=== PATIENT | female | born 1955 | race Caucasian/White ===

== ENCOUNTER 2018-07-14 22:26 | Outpatient (REF) | payer BC, SELFPAY | END 2018-07-14 22:46 | LOC: NCHCN 22:26 | PROVIDERS: PCP Family Medicine; Visit Provider Registered Nurse | DX: R30.0 Dysuria (principal) | CPT/HCPCS: 87077; 87086; 87186 ==

== ENCOUNTER 2018-07-18 17:44 | Outpatient (REF) | payer BC, SELFPAY ==
[2018-07-18 20:52] LABS: Anion Gap 5.8 mmol/L (3-11); BUN 19 mg/dL (7-18); CO2 32.2 mmol/L (21.0-32.0); CREATININE 0.83 mg/dL (0.55-1.02); Chloride 98 mmol/L (98-107); Glucose 207 mg/dL (70-100); Potassium 3.7 mmol/L (3.5-5.1); Sodium 136 mmol/L (136-145)
[2018-07-18 20:54] LABS: Abs Immature Grans 0.03 k/cumm (0.0-0.09); Absolute Basophil Count 0.03 k/cumm (0.0-0.2); Absolute Eosinophil Count 0.32 k/cumm (0.0-0.7); Absolute Lymphocyte Count 3.42 k/cumm (1.2-3.4); Absolute Monocyte Count 0.57 k/cumm (0.11-0.7); Absolute Neutrophil Count 5.88 k/cumm (1.2-6.7); Basophils % 0.3; Eosinophils % 3.1; HCT 42.6 % (36.0-46.0); HGB 13.6 g/dL (12.0-15.5); Immature Grans % 0.3; Lymphocytes % 33.4; Mean Corp. HGB Concentration 31.9 g/dL (32.0-36.0); Mean Corpuscular Hemoglobin 28.1 pg (27.0-33.0); Mean Platelet Volume 11.8 fL (8.0-11.0); Monocytes % 5.6; Neutrophils % 57.3; Platelet Count 314 x1000/uL (130-400); RBC 4.84 m/cumm (4.00-5.20); RBC Distribution Width 13.5 % (11.7-14.6); White Blood Cell Count 10.25 k/cumm (4.4-10.8)
[2018-07-18 21:10] LABS: C & S Indicated? C&S Done As Ordered
[2018-07-18 21:16] LABS: Bacteria Negative HPF (Negative); Casts Negative LPF (Negative); Crystals Negative HPF (Negative); Epithelial Cells Few HPF (Negative); Mucus Negative (Negative); Other Cells Negative (Negative); RBC Negative (0-2); WBC 0-2 HPF (0-5)
== END 2018-07-18 18:04 ==
LOC: NCHCN 17:44
PROVIDERS: PCP Family Medicine; Visit Provider Registered Nurse
DX: R10.9 Unspecified abdominal pain (principal); R82.90 Unspecified abnormal findings in urine
CPT/HCPCS: 80048; 81015; 85025; 87086

== ENCOUNTER 2018-09-28 21:31 | Outpatient (REF) | payer BC, SELFPAY ==
[2018-09-28 22:38] LABS: COMMENT (LAB VIEW ONLY) 110.83 mg/dL
== END 2018-09-28 21:51 ==
LOC: NCHCN 21:31
PROVIDERS: PCP Family Medicine; Visit Provider Family Medicine
DX: E11.9 Type 2 diabetes mellitus without complications (principal)
CPT/HCPCS: 82043; 82570

== ENCOUNTER 2019-08-02 14:59 | Outpatient (REF) | payer BC, SELFPAY ==
[2019-08-02 22:53] LABS: Anion Gap 6.9 mmol/L (3-11); BUN 17 mg/dL (7-18); CO2 31.1 mmol/L (21.0-32.0); CREATININE 0.73 mg/dL (0.55-1.02); Calcium 9.6 mg/dL (8.5-10.1); Chloride 102 mmol/L (98-107); Glucose 122 mg/dL (70-100); Potassium 3.9 mmol/L (3.5-5.1); Sodium 140 mmol/L (136-145)
== END 2019-08-02 15:19 ==
LOC: NCHCN 14:59
PROVIDERS: PCP Family Medicine; Visit Provider Registered Nurse
DX: I10 Essential (primary) hypertension (principal)
CPT/HCPCS: 80048

== ENCOUNTER 2020-01-31 11:03 | Outpatient (REF) | payer BC, SELFPAY ==
[2020-01-31 21:48] LABS: Hemoglobin A1C 7.6 % (3.8-5.6)
[2020-01-31 21:56] LABS: ALT 46 U/L (14-59); AST 17 U/L (15-37); Albumin 3.9 g/dL (3.4-5.0); Alkaline Phosphatase 75 U/L (46-116); BUN 17 mg/dL (7-18); Bilirubin, Total 0.4 mg/dL (0.2-1.0); CREATININE 0.82 mg/dL (0.55-1.02); Calculated LDL 88 mg/dL (<100); Chloride 95 mmol/L (98-107); Cholesterol 151 mg/dL (<200); Glucose 144 mg/dL (74-106); HDL Cholesterol 34 mg/dL (40-60); Potassium 4.5 mmol/L (3.5-5.1); Sodium 133 mmol/L (136-145); TSH 0.73 uIU/mL (0.36-3.74); Total Protein 7.3 g/dL (6.4-8.2); Triglyceride 149 mg/dL (<150)
== END 2020-01-31 11:23 ==
LOC: NCHCN 11:03
PROVIDERS: PCP Family Medicine; Visit Provider Family Medicine
DX: I10 Essential (primary) hypertension (principal); E11.9 Type 2 diabetes mellitus without complications; L68.0 Hirsutism; E78.5 Hyperlipidemia, unspecified
CPT/HCPCS: 80053; 80061; 83036; 84443

== ENCOUNTER 2020-06-19 21:23 | Outpatient (REF) | payer BC, SELFPAY ==
[2020-06-19 22:22] LABS: COMMENT (LAB VIEW ONLY) 58.71 mg/dL; Microalb ug/mg Crea 9.5 ug/mg Cr
== END 2020-06-19 21:43 ==
LOC: NCHCN 21:23
PROVIDERS: PCP Family Medicine; Visit Provider Family Medicine
DX: E11.9 Type 2 diabetes mellitus without complications (principal)
CPT/HCPCS: 82043; 82570

== ENCOUNTER 2021-03-18 10:05 | Outpatient (REF) | payer BC, SELFPAY ==
--- OUTSIDE RECORDS SUMMARY | 2021-03-18 10:09 | XMS_ITS ---
:1955 Author Care Team Providers Name Role Phone HARDIK SOLIS MD Primary Care Provider [phone] Allergies Code Code System Name Reaction Severity Status Onset NKDA ? Medications Name Status Start Date Stop Date ? ? atorvastatin 10 mg tablet Active ? Not av ailable Take 1 tablet every day by oral route. duloxetine 20 mg capsule,delayed release Active ? Not available Take 1 capsule twice a day by oral route. lisinopril 20 mg-hydrochlorothiazide 25 mg tablet Active ? Not available Take 1 tablet every day by oral route. metformin 500 mg tablet Active ? Not avai lable Take 1 tablet twice a day by oral route. tolterodine 2 mg tablet Active ? Not avai lable Take 1 tablet twice a day by oral route. Tylenol Extra Strength 500 mg tablet Active ? Not available Take 2 tablets every 6 hours by oral route. Problems Name Status Onset Date Source ? Adenomatous Polyp of Colon Active 02/20/2021 ? Type 2 Diabetes Mellitus Active 02/20/2021 ? Hyperlipidemia Active 02/20/2021 ? Morbid Obesity Active 02/20/2021 ? Depressive Disorder Active 02/20/2021 ? Carpal Tunnel Syndrome Active 02/20/2021 ? Bilateral Hearing Loss Active 02/20/2021 ? Hypertensive Disorder Active 02/20/2021 ? Abnormal Vaginal Bleeding Active 02/20/2021 ? Actinic Keratosis Active 02/20/2021 ? Female Hirsutism Active 02/20/2021 ? Osteoarthritis Active 02/20/2021 ? Mass of Lower Limb Active 02/20/2021 ? Daytime Somnolence Active 02/20/2021 ? Mixed Urinary Incontinence Active 02/20/2021 ? History of Squamous Cell Carcinoma of Skin Active 02/20 ? History of Anaphylaxis Active 02/20/2021 ? History of Total Hip Arthroplasty Active 02/20/2021 ? History of Total Knee Arthroplasty Active 02/20/2021 ? 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 Cholesteatoma of Left Middle Ear Active 02/20/2021 ? Sleep-wake Schedule Disorder, Delayed Phase Active 02/15 ? Type Procedures None recorded. Results Lab Results None recorded. 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 Social History Tobacco Smoking Status Never Smoker Vaccine List None recorded. Plan of Care Reminders Provider Appointments None ? ? recorded. Lab None ? ? recorded. Referral None ? ? recorded. Procedures None ? ? recorded. Surgeries None ? ? recorded. Imaging None ? ? recorded. Vitals Height Weight BMI Blood Pressure 167.64 cm 101.11 kg 36 kg/m2 128/72 mm[Hg]
--- OUTSIDE RECORDS SUMMARY | 2021-03-18 10:09 | XMS_ITS | Encounter Summary ---
:1955 Author Care Team Providers Name Role Phone More Nunez MD Primary Care Provider [phone] Reason for Visit None recorded. Assessment and Plan 1. Daytime somnolence Ana has symptoms of daytim e sleepiness (ESS 13), snoring and nocturia with a Little Birch score of 3/3 indicating a high likelihood of sleep apnea. She has HTN which may be caused or worsened by untreated JAVIER. I discussed the pathophy siology of obstructive sleep apnea and the potential consequences of untreated JAVIER including how it relates to her symptoms and comorbidities. I ordered a home sl eep study and discussed what will take p cynthiae the night of the sleep study. She is made aware that if this is inconclusive a PSG would be ordered. I will see her back to review the results as soon as the y are available. Drowsy driving precauti ons were reviewed. I provided greater than 40 minutes in th e care of this patient, more than half the time was spent in [id number] counseling. ? Home Sleep Apnea Testing 2. Sleep-wake schedule disorder, delayed phase type Since she retired she took on her 's sleep pattern which she does not like. She has been getting to bed fr om 12-3 am and up at 7-8 am. More recently she has started to work on shifting this earlier and tries to be in bed by midnight. She has also been working on cutting janki k on naps. Will continue to monitor. Discussion Note: None recorded.Patient educational handouts: No information available. 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 ? recorded. Referral None ? ? recorded. Procedures None ? ? recorded. Surgeries None ? ? recorded. Imaging None ? ? recorded. Medications Name Start Date ? ? atorvastatin 10 mg tablet ? Take 1 tablet every day by oral route. duloxetine 20 mg capsule,delayed release ? Take 1 capsule twice a day by oral route. lisinopril 20 mg-hydrochlorothiazide 25 mg tablet ? Take 1 tablet every day by oral route. metformin 500 mg tablet ? Take 1 tablet twice a day by oral route. tolterodine 2 mg tablet ? Take 1 tablet twice a day by oral route. Tylenol Extra Strength 500 mg tablet ? Take 2 tablets every 6 hours by oral route. Medications Administered None recorded. Vitals Height Weight BMI Blood Pressure 5 ft 6 in 222.9 lbs 36 kg/m2 128/72 mm[Hg] Results Lab Results None recorded. Allergies Code Code System Name Reaction Severity Onset NKDA ? ? ? Problems Name Status Onset Date Source ? [...] Active 02/15 ? Type Procedures None recorded. Vaccine List None recorded. Social History Tobacco Smoking Status Never Smoker Alcohol intake None Live alone or with others? with others Are you currently employed? N Blind or serious difficulty seeing N Not es: wears glasses Hard of hearing or deaf in one or N both ears? Caffeine intake Occasional Notes: 12 oz of c offee a day Drug Use N Functional Status No Impairment. Past Encounters 02/25/2021 Daytime Somnolence; Sleep-wake Schedule Disorder, Delayed Phase Type Mariluz Wallis NP: [address] [place] [address], [place] [address], Ph. History of Present Illness Note: <p>Ana Herbert is seen in consultation at the request of More Nunez MD for evaluation of daytime somnolence.</p><p>
</p><p>Ana has a medical history to include depression, hearing loss, hirsutism, HTN, HLD, OA, morbid obesity, and DM. She was evaluated by Francy Leos NP at the [facility] sleep clinic in 02/2020 but never had a PSG. She says she never had it done because she wanted a home study and was told it was not an option.</p><p> {{Ana# Patient}} feels {{his her*}} biggest problem with sleep is {{snoring waking up a lot not feeling rested*}}. {{He She*}} typically goes to bed at {{12-2# 9}}am. It takes {{0# 5}} minutes to fall asleep. {{He She*}} wakes up {{several# 1 2 3}} times a night to use the{{unknown reason pain bathroom*}} and it takes {{a few# }} minutes to get back to sleep. {{He She *}} gets up at {{7-8# 5 6 7 8}}am to start {{his her*}} day. {{He She*}} does take naps 1-2/day for an hour. {{He She*}} has no disturbances to {{his her*}} sleep. {{He She*}} has never had a sleep study. {{He She*}} sleeps {{alone with someone*}} in a bed.

SLEEP QUALITY: Feels quality of sleep most nights is {{good * okay poor}}.

DAYTIMEALERTNESS: Reports level of alertness most days to be {{ low energy to sleepy # alert low energy sleepy very sleepy}}.

PSYCH SYMPTOMS: {{Has Has not*}} noted worsening memory {{but has short# and or}} concentration. {{Does have Denies current problems with *}} irritability</p><p>{{and or*}} anxiety but has depression. {{Has Has not*}} noted difficulty with calculations.

INSOMNIA SYMPTOMS: {{Does have Does not have*}} an active mind at night when trying to sleep. {{Does have Does not have*}} stressful thoughts interfering with sleep. {{Does Does not*}} watch the clock throughout the night. {{Does Does not*}} worry about getting a good night's sleep.

BREATHING SYMPTOMS: {{Does have * Does not have}} snoring. {{Does have Does not have*}} witnessed apnea. {{Does have Does not have*}} nocturnal choking/gasping/dyspnea.{{Does have * Does not have}} mouth breathing. {{Does have * Does not have}}nasal congestion at night.

MOVEMENT SYMPTOMS: {{Does have Does not have*}} tossing & turning. {{Does have Does not have*}} messy sheets in the morning. {{Does have Does not have*}} leg or arm jerks, kicks or twitches in sleep or prior to falling asleep. {{Does Does not*}} have an aching, restless or crawling feeling in legs at night. {{Does Does not*}} have a hard time keeping legs still when trying to sleep. {{Does Does not*}} have muscle cramps or Aydin horses. {{Does Does not*}} have sleep walking or talking.

DREAM SYMPTOMS: {{Does have Does not have*}} nightmares often that affect ability to sleep. {{Does have Does not have*}} dreams of suffocating/drowning. {{Does Does not*}} dream shortly after fallingasleep. {{Does Does not*}} see dreams in the room even when awake.{{Does Does not*}} see or hearthings in the room when falling asleep that aren't really there. {{Does Does not*}} see things in the road when driving that aren't really there. {{Has Has not*}} had someone see then act our theirdreams. {{Has Has not*}} accidentally injured themselves while sleeping due to own movements/behaviors.

CATAPLEXY SYMPTOMS: {{Does have Does not have*}} feel limp, lose strength,or fall asleep when very angry, surprised or laughing. {{Does have Does not have*}} leg, arm or face weakness when upset. {{Has Has not*}} had episodes of being unable to move when waking up which is often frightening.

DRIVING: {{Has * Has not}} nearly fallen asleep driving. When she was working she would get sleepy on her commute but this has not been a problem recently. {{Has had Has not had*}} an accident related to drowsy driving or not paying attention. {{Does * Does not}} forget the last few miles or minutes while driving. {{Has Has not*}} driven out of [place] and crossed center line or gone onto shoulder when driving. {{Has Has not*}} had a passenger tell them they look sleepy when driving.

ESS today
Little Birch Questionnaire Score 3/</p>Review of Systems: ROS as noted in the HPI Review of Systems ? Notes: <p>wakes with dry mouth, cou gh, LEWIS, nocturia 2-4/night, headaches (occasionally wakes with the se) and joint pain (knees).</p><p>Denies heartburn or night sweats. </p> Physical Exam ? Notes: <p>General: A&O, well groome d, answers questions appropriately, {{over weight obese * morbidly obese normal weight thin}}.
HEAD: normocephalic & atraumatic, {{ mild retrogna thia# normal appearing chin retrognathia}}.
EYES: non icteric.
NOSE: open nasal passages, septum midline, no polyps or masses .
THROAT/MOUTH: moist mucous membranes, modified mallampati score {{ 1 2 3 * 4}}, tonsils without hypertrophy. Lateral wall narrowing grade {{1 2 * 3}}. Tongue scalloping {{is * is not}} noted.
NECK: supple without palpable lymph nodes.
LUNGS: CTA all singh. Good air movement.<b r>CARDIO: RRR without murmur, gallop or thrill.
ABDOMEN: soft and non tender with positive bowel sounds.
MS: Good ROM of all extremities. No cyanosis, clubbing or edema.
NEURO: A&O. Normal gait.
PSYCH: No rmal mood and affect.
CUTANEOUS: no overt lesions or rashes</p>
[2021-03-18 13:49] LABS: ALT 26 U/L (14-59); AST 15 U/L (15-37); Albumin 3.8 g/dL (3.4-5.0); Alkaline Phosphatase 71 U/L (46-116); Anion Gap 8.8 mmol/L (3-11); BUN 23 mg/dL (7-18); Bilirubin, Total 0.3 mg/dL (0.2-1.0); CO2 29.2 mmol/L (21.0-32.0); CREATININE 0.8 mg/dL (0.55-1.02); Calcium 10.2 mg/dL (8.5-10.1); Calculated LDL 68 mg/dL (<100); Chloride 98 mmol/L (98-107); Cholesterol 138 mg/dL (<200); Glucose 150 mg/dL (74-106); HDL Cholesterol 34 mg/dL (40-60); Potassium 4.4 mmol/L (3.5-5.1); Sodium 136 mmol/L (136-145); Triglyceride 182 mg/dL (<150)
== END 2021-03-18 10:06 | disposition home or self-care (01) ==
LOC: NCHCN 10:05
PROVIDERS: PCP Family Medicine; Visit Provider Family Medicine
DX: I10 Essential (primary) hypertension (principal); E78.5 Hyperlipidemia, unspecified; E11.9 Type 2 diabetes mellitus without complications; E66.9 Obesity, unspecified
CPT/HCPCS: 80053; 80061

== ENCOUNTER 2021-09-23 10:38 | Outpatient (REF) | payer BC, SELFPAY ==
--- NOTE | 2021-09-23 09:30 | PAPFT_PTH ---
PATIENT: Ana Herbert LOC: [facility]#:[id number] AGE/SX: 66/F ROOM: RE09/23/[address]: More Nunez : 1955 BED: DIS: 09/23/2021 SPEC #: [id number] RECD: 09/23/21 12:58 STATUS: OMERO REFaheem #: [id number] VELIA: 09/23/21 09:[address]: More Nunez DEPT: [facility] Cytology RECD BY: Louisa Berman Tissues: 1 - CX/ENDOCX FOR PAP SMEARS Procedures: PAP THIN PREP/[facility] Screening HPV DNA PROBE Comments: [id number]
== END 2021-09-23 10:39 | disposition home or self-care (01) ==
LOC: NCHCN 10:38
PROVIDERS: PCP Family Medicine; Visit Provider Family Medicine
DX: Z12.4 Encounter for screening for malignant neoplasm of cervix (principal); Z11.51 Encounter for screening for human papillomavirus (HPV)
CPT/HCPCS: 88142; 87624

== ENCOUNTER 2022-01-30 12:38 | Outpatient (REF) | payer MEDICARE, BC, SELFPAY ==
[2022-01-30 21:30] LABS: COMMENT (LAB VIEW ONLY) 39.53 mg/dL; Microalb ug/mg Crea 14.9 ug/mg Cr
== END 2022-01-30 12:39 | disposition home or self-care (01) ==
LOC: NCHCN 12:38
PROVIDERS: PCP Family Medicine; Visit Provider Family Medicine
DX: E11.9 Type 2 diabetes mellitus without complications (principal)
CPT/HCPCS: 82043; 82570

== ENCOUNTER 2022-07-22 18:51 | Outpatient (REF) | payer MEDICARE, BC, SELFPAY ==
--- NOTE | 2022-07-22 16:30 | SKI_PTH ---
PATIENT: Ana Herbert LOC: [facility]#:[id number] AGE/SX: 67/F ROOM: RE07/22/[address]: More Nunez : 1955 BED: DIS: 07/22/2022 SPEC #: [id number] RECD: 07/23/22 12:23 STATUS: OMERO REFaheem #: [id number] VELIA: 07/22/22 16:[address]: More Nunez DEPT: Surgical Specimen RECD BY: Louisa Berman Tissues: 1 - SKIN BIOPSY(SHAVE/PUNCH) 2 - SKIN BIOPSY(SHAVE/PUNCH) Procedures: SKIN LEVEL 4 Comments: [id number]
== END 2022-07-22 18:52 | disposition home or self-care (01) ==
LOC: NCHCN 18:51
PROVIDERS: PCP Family Medicine; Visit Provider Family Medicine
DX: L57.0 Actinic keratosis (principal)
CPT/HCPCS: 88305

== ENCOUNTER 2022-12-22 15:35 | Outpatient (REF) | payer MEDICARE, BC, SELFPAY ==
[2022-12-22 15:55] LABS: COMMENT (LAB VIEW ONLY) 27.21 mg/dL; Microalb ug/mg Crea 9.2 ug/mg Cr
== END 2022-12-22 15:36 | disposition home or self-care (01) ==
LOC: NCHCN 15:35
PROVIDERS: PCP Family Medicine; Visit Provider Family Medicine
DX: E11.9 Type 2 diabetes mellitus without complications (principal)
CPT/HCPCS: 82043; 82570

== ENCOUNTER 2023-04-26 14:46 | Outpatient (REF) | payer MEDICARE, BC, SELFPAY ==
[2023-04-26 22:27] LABS: BUN 22 mg/dL (7-18); CREATININE 0.6 mg/dL (0.55-1.02); Calcium 9.4 mg/dL (8.5-10.1); Chloride 104 mmol/L (98-107); Estimated GFR 98.93 (mL/min/1.73m2); Glucose 151 mg/dL (74-106); Potassium 4.2 mmol/L (3.5-5.1); Sodium 139 mmol/L (136-145)
[2023-04-26 22:31] LABS: Hemoglobin A1C 6.8 % (<5.7)
== END 2023-04-26 14:47 | disposition home or self-care (01) ==
LOC: NCHCN 14:46
PROVIDERS: PCP Family Medicine; Visit Provider Family Medicine
DX: E11.9 Type 2 diabetes mellitus without complications (principal); I10 Essential (primary) hypertension
CPT/HCPCS: 80048; 83036

== ENCOUNTER 2024-04-24 13:20 | Outpatient (REF) | payer MEDICARE, BC, SELFPAY ==
[2024-04-24 15:43] LABS: Anion Gap 6.1 mmol/L (3-11); BUN 10 mg/dL (7-18); CO2 28.9 mmol/L (21.0-32.0); CREATININE 0.6 mg/dL (0.55-1.02); Chloride 101 mmol/L (98-107); Estimated GFR 98.32 (mL/min/1.73m2); Glucose 114 mg/dL (74-106); Potassium 4.2 mmol/L (3.5-5.1); Sodium 136 mmol/L (136-145)
[2024-04-24 16:18] LABS: Microalb ug/mg Crea 5.2 ug/mg Cr
== END 2024-04-24 13:21 | disposition home or self-care (01) ==
LOC: NCHCN 13:20
PROVIDERS: PCP Family Medicine; Visit Provider Family Medicine
DX: E11.9 Type 2 diabetes mellitus without complications (principal); I10 Essential (primary) hypertension
CPT/HCPCS: 80048; 82043; 82570

== ENCOUNTER 2025-09-06 15:49 | Outpatient (REF) | payer MEDICARE, BC, SELFPAY ==
[2025-09-06 20:47] LABS: ALT 15 U/L (10-49); AST 18 U/L (<34); Albumin 4.3 g/dL (3.4-5.0); Alkaline Phosphatase 61 U/L (46-116); Anion Gap 3.7 mmol/L (3-11); BUN 17 mg/dL (9-23); Bilirubin, Total 0.30 mg/dL (0.2-1.2); CO2 30.3 mmol/L (20.0-31.0); Calcium 10.1 mg/dL (8.3-10.6); Chloride 104 mmol/L (98-107); Cholesterol 138 mg/dL (<200); Glucose 95 mg/dL (74-106); HDL Cholesterol 47 mg/dL (>40); Potassium 3.8 mmol/L (3.5-5.1); Sodium 138 mmol/L (136-145); Total Protein 7.0 g/dL (5.7-8.2)
== END 2025-09-06 15:50 | disposition home or self-care (01) ==
LOC: NCHCN 15:49
PROVIDERS: PCP Family Medicine; Visit Provider Family Medicine
DX: E78.5 Hyperlipidemia, unspecified (principal); E11.9 Type 2 diabetes mellitus without complications; I10 Essential (primary) hypertension
CPT/HCPCS: 80053; 80061; 82043; 82570